=== PATIENT | male | born 1940 | race Caucasian/White ===

== ENCOUNTER 2021-11-01 15:31 | Emergency (ER) | payer MEDICARE, SELFPAY ==
--- NOTE | ~2021-11-01 | XR_ITS ---
EXAM: XR finger 5th LT min 2V HISTORY: fall COMPARISON: None available FINDINGS: Normal mineralization. No fracture or dislocation. No lytic or blastic lesion. Joint space s maintained. No erosion or periosteal change. Soft tissues within normal limits. IMPRESSION: No acute osseous finding in the left fifth finger. Reviewed, dictated and finalized at location K.
[2021-11-01 15:35] VITALS: BP 136/86; PULSE 50; RESP 17; TEMP 36.2; O2SAT 98
--- NOTE | 2021-11-01 15:40 | PC.NURSE ---
Radiology at bedside for xray of left hand.
--- NOTE | 2021-11-01 15:45 | PC.NURSE ---
Dr. Reeves at bedside to assess pt.
--- NOTE | 2021-11-01 16:03 | ED.FALL ---
HPI - Fall General Chief Complaint: Fall <Eitan Reeves MD - Last Filed: 11/01/21 17:40> Stated Complaint: fall, left pinky injury <Eitan Reeves MD - Last Filed: 11/01/21 17:40> Time Seen by Provider: 11/01/21 15:36 <Eitan Reeves MD - Last Filed: 11/01/21 17:40> Source: patient <Eitan Reeves MD - Last Filed: 11/01/21 17:40> History of Present Illness HPI Narrative: Patient presents with a left pinky injury. Patient ports he was sitting on the porch bench when he stood up and turned and lost his balance he tried to catch himself and injured his left pinky and then struck the back of his right hand on the bench. He noted bleeding from his left pinky and a open wound he was concerned so came to the ER for evaluation. He also reports he felt some pop in his finger and was concerned that maybe there was a fracture. Denies any focal numbness or weakness. Denies any limitations to range of motion. Reports pain primarily on his left pinky that is achy, constant, worse with moving his finger, no radiation. Any prodrome such as chest pain shortness of breath or lightheadedness prior to the fall. Denies striking his head or any loss of consciousness. <Eitan Reeves MD - Last Filed: 11/01/21 17:40> Related Data Home Medications: Home Medications Medication Instructions Recorded Confirmed atorvastatin 10 mg tablet 10 mg PO DAILY 06/18/19 finasteride 5 mg tablet 5 mg PO DAILY 06/18/19 omeprazole 40 mg capsule,delayed 40 mg PO DAILY 06/18/19 release triamterene 37.5 1 cap PO DAILY 06/18/19 mg-hydrochlorothiazide 25 mg capsule <Eitan Reeves MD - Last Filed: 11/01/21 17:40> Allergies/Adverse Reactions: Allergies Allergy/AdvReac Type Severity Reaction Status Date / Time amoxicillin Allergy Unknown Unknown Verified 11/01/21 15:39 lansoprazole Allergy Unknown Rash Verified 11/01/21 15:39 Penicillins Allergy Unknown unknown Verified 11/01/21 15:39 <Eitan Reeves MD - Last Filed: 11/01/21 17:40> Review of Systems Review of Systems: CONSTITUTIONAL: Denies fever, chills, or sweats. EYES: Denies visual changes, redness, or discharge. ENT: Denies rhinorrhea, congestion, sore throat, or otalgia. CARDIOVASCULAR: Denies chest pain, palpitations, or edema. RESPIRATORY: Denies cough or dyspnea. GASTROINTESTINAL: Denies abdominal pain, nausea, vomiting, or diarrhea. GENITOURINARY: Denies dysuria or hematuria. SKIN: Denies rash or itching. MUSCULOSKELETAL: Denies back pain, joint pain, or myalgia. NEUROLOGIC: Denies headache, numbness, dizziness, or weakness. PSYCHIATRIC: Denies anxiety or depression. <Eitan Reeves MD - Last Filed: 11/01/21 17:40> All systems reviewed & are unremarkable except as noted in HPI and below <Eitan Reeves MD - Last Filed: 11/01/21 17:40> PMFSH Past Medical History Medical History: Medical History (Updated 11/01/21 @ 16:12 by Eitan Reeves MD) High blood pressure High cholesterol Skin cancer <Eitan Reeves MD - Last Filed: 11/01/21 17:40> Family History Family History: Family History Sibling Cerebrovascular accident Family history of heart disease in male family member before age 55 <Eitan Reeves MD - Last Filed: 11/01/21 17:40> Social History Social History: Social History Smoking status: Never smoker Alcohol intake: never <Eitan Reeves MD - Last Filed: 11/01/21 17:40> Exam Narrative: GENERAL: Well-appearing, well-nourished, and in no acute distress. HEAD: Normocephalic, atraumatic. EYES: PERRLA and EOMI. ENT: Nares clear, no rhinorrhea or epistaxis. Mucous membranes moist. ABDOMEN: Soft, nontender, nondistended, normal active bowel sounds. EXTREMITIES: Normal range of motion. No edema. There are multiple small abrasions noted to the dorsal aspect of th
--- NOTE | 2021-11-01 16:25 | PC.NURSE ---
Addendum entered by Ana Gonzalez RN 11/01/21 16:33: Laceration is to fifth digit not fourth. Original Note: GERALD Remy at bedside to stitch laceration to fourth digit on left hand.
[2021-11-01] MEDS: LIDO 1%/EPINEPHRINE 1:100,000 20 ML VIAL (16:34)
== END 2021-11-01 16:58 | disposition home or self-care (01) ==
PROVIDERS: Emergency Provider Emergency Medicine; PCP Internal Medicine
DX: S61.217A Laceration without foreign body of left little finger without damage to nail, initial encounter (principal); Z85.828 Personal history of other malignant neoplasm of skin; I10 Essential (primary) hypertension; E78.00 Pure hypercholesterolemia, unspecified; S60.511A Abrasion of right hand, initial encounter; W18.39XA Other fall on same level, initial encounter
CPT/HCPCS: 12001; 73140; 99283

== ENCOUNTER 2024-06-22 10:05 | Emergency (ER) | payer MEDICARE, SELFPAY ==
[2024-06-22] VITALS (8 sets, daily range): BP systolic 118–147; BP diastolic 66–90; PULSE 39–42; RESP 13–20; TEMP 36.3–36.6; O2SAT 97–99
--- NOTE | ~2024-06-22 | XR_ITS ---
EXAMINATION: XR chest 2V DATE: 06/22/2024 10:52 INDICATION: Bradycardia. TECHNIQUE: Frontal and lateral views of the chest were obtained. COMPARISON: None. FINDINGS: There is mild atelectasis at the lung bases. No pleural effusion or pneumothorax. The heart size is normal. IMPRESSION: 1. Mild atelectasis at the lung bases. Reviewed, dictated and finalized at location A. R SITE ASSESSMENT SPECIALIST
--- NOTE | 2024-06-22 10:08 | ECG_ITS ---
Test Date: 2024-06-22 10:27:37 Measurements Intervals [place]vere Rate: 41 P: 29 MO: 165 QRS: 28 QRSD: 92 T: 12 QT: 461 QTc: 382 Interpretive Statements SINUS BRADYCARDIA WITH SINUS ARRHYTHMIA No previous ECG available for comparison Electronically Signed On 06-22-2024 12:58:01 TV HOST by Jessica Guthrie M.D.
[2024-06-22 10:47] LABS: Basophils Absolute Auto 0.1 K/mm3 (0.0-0.1); Basophils Percent Auto 0.7 % (0.2-1.2); Eosinophils Absolute Auto 0.2 K/mm3 (0-0.3); Eosinophils Percent Auto 2.1 % (0-4.4); Hematocrit 44.8 % (42.0-52.0); Hemoglobin 14.9 g/dL (14.0-18.0); Immature Granulocyte Absolute 0.01 K/mm3 (0.00-0.031); Immature Granulocyte Percent A 0.1 % (0-0.5); Lymphocytes Absolute Auto 2.51 K/mm3 (0.9-3.2); Lymphocytes Percent Auto 35.9 % (18.3-44.2); Mean Corpuscular HGB Conc 33.3 g/dl (32-36); Mean Corpuscular Hemoglobin 31.5 pg (26-34); Mean Corpuscular Volume 94.7 fl (80-100); Mean Platelet Volume 9.9 fl (7.4-10.4); Monocytes Absolute Auto 0.6 K/mm3 (0.1-0.6); Monocytes Percent Auto 8.2 % (2.6-8.5); Neutrophils Absolute Auto 3.7 K/mm3 (1.3-6.7); Platelet Count Result 202 k/mm3 (150-375); Red Blood Count 4.73 M/mm3 (4.6-6.20); Red Cell Distribution Width 12.2 % (11.5-14.5)
[2024-06-22 10:50] LABS: INR 0.9; Prothrombin Time 12.9 Seconds (11.1-14.7)
[2024-06-22 10:51] LABS: Partial Thromboplastin Time 25.5 Seconds (22.3-36.8)
[2024-06-22 10:57] LABS: Alanine Aminotransferase 22 U/L (6-50); Albumin Level 4.3 g/dL (3.5-5.1); Alkaline Phosphatase 89 U/L (38-126); Anion Gap 3 mmol/L (4-12); Aspartate Amino Transferase 32 U/L (17-59); Bilirubin,Total 0.8 mg/dL (0.2-1.3); Blood Urea Nitrogen 15 mg/dL (9-20); Calcium 9.3 mg/dL (8.4-10.2); Carbon Dioxide 31 mmol/L (22-30); Chloride 105 mmol/L (98-107); Estimated CRCL calculation 56 ml/min; Estimated Glomerular Filt Rate > 60; Glucose 106 mg/dL (65-110); Lipase 72 U/L (23-300); Potassium 4.1 mmol/L (3.4-5.0); Sodium 139 mmol/L (137-145)
[2024-06-22 11:03] LABS: Troponin I < 0.012 ng/mL (0.000-0.034)
--- NOTE | 2024-06-22 12:28 | ED_ITS ---
HPI - General Adult General Chief complaint: Chest Pain Stated complaint: low heart rate 30-40's Time Seen by Provider: 06/22/24 11:02 Source: patient Mode of arrival: ambulatory Limitations: no limitations History of Present Illness HPI narrative: Patient presents with report of a low heart rate. He states his heart rate is often low, usually in the 50s, but while in pre-op for cataract surgery, his heart rate was in the 30s-40s. He reports otherwise being asymptomatic, without chest pain or shortness of breath or change in urine output. Patient notes he takes metoprolol as well as triamterene hydrochlorothiazide. He was not told to hold these medications before his surgery today so he believes that he took them. He has an appointment with Dr Raya, a global coordinator through [facility], on 07/06 at 8:30. This will be his first appointment with a global coordinator. This is because blockages were seen based on an outside test. No prior stents. He is on a statin for hyperlipidemia and also on finasteride and a multivitamin. Related Data Home Medications ?Medication ?Instructions ?Recorded ?Confirmed ?Last Taken ?Type atorvastatin 10 mg tablet 10 mg PO DAILY 06/18/19 Unknown History finasteride 5 mg tablet 5 mg PO DAILY 06/18/19 Unknown History omeprazole 40 mg capsule,delayed 40 mg PO DAILY 06/18/19 Unknown History release triamterene 37.5 1 cap PO DAILY 06/18/19 Unknown History mg-hydrochlorothiazide 25 mg capsule Allergies Allergy/AdvReac Type Severity Reaction Status Date / Time amoxicillin Allergy Unknown Unknown Verified 06/22/24 10:06 lansoprazole Allergy Unknown Rash Verified 06/22/24 10:06 Penicillins Allergy Unknown unknown Verified 06/22/24 10:06 [facility] Past Medical History Medical History (Updated 06/26/24 @ 11:31 by Akiko Mcbride MD) Cataract Skin cancer High cholesterol High blood pressure Family History Family History Sibling Cerebrovascular accident Family history of heart disease in male family member before age 55 Social History Social History Smoking status: Never smoker Alcohol intake: never Exam 2 Narrative: GENERAL: Well-appearing, well-nourished, and in no acute distress. HEAD: Normocephalic, atraumatic. EYES: Non injected, non icteric ENT: Nares clear, no rhinorrhea or epistaxis. NECK: Supple. CHEST: Speaking in full sentences. No respiratory distress. HEART: Bradycardic rate and rhythm. . ABDOMEN: Soft, nondistended. EXTREMITIES: Normal range of motion. Trace lower extremity pitting edema. SKIN: Warm, dry, no rash. NEURO: No focal deficits. Alert and oriented x3. PSYCH: Normal mood and affect. Exceedingly pleasant Course Vital Signs Vital signs: Vital Signs Temperature 97.4 F L 06/22/24 10:10 Pulse Rate 40 L 06/22/24 10:10 Blood Pressure 118/66 06/22/24 10:10 Pulse Oximetry 97 06/22/24 10:10 Temperature 97.8 F 06/22/24 14:03 Pulse Rate 42 L 06/22/24 14:03 Respiratory Rate 13 06/22/24 14:03 Blood Pressure 142/78 H 06/22/24 14:03 Pulse Oximetry 98 06/22/24 14:03 Medical Decision Making MDM Narrative Medical decision making narrative: Patient presents with report of a low heart rate in the 30s-40s found during pre-op period for cataract surgery this morning. In the emergency department he is afebrile with vital signs notable for bradycardia. Patient is on a beta-susi as well as a combination calcium channel susi diuretic. Electrolytes without marked abnormalities. Normal renal function. He is otherwise asymptomatic and has been hemodynamically stable. advised to keep upcoming appointment to establish with a global coordinator and discuss if need to hold medications prior to surgery in the future and/or other workup. Ed return precautions given. Differential Diagnosis Differential Diagnosis: ACS, medication side effect/overdose, electrolyte abnormalities, asymptomatic bradycardia Vital Signs Vital Signs: Vital Signs Temperature 97.4 F L 06/22/24 10:10 Pulse Rate 40 L 06/22/24 10:10 Blood Pressure 118/66 06/22/24 10:10 Pulse Oximetry 97 06/22/24 10:10 Temperature 97.8 F 06/22/24 14:03 Pulse Rate 42 L 06/22/24 14:03 Respiratory Rate 13 06/22/24 14:03 Blood Pressure 142/78 H 06/22/24 14:03 Pulse Oximetry 98 12/06/24 14:03 Lab Data Lab results reviewed: Yes I reviewed the patient's lab results. 06/22/24 10:32 06/22/24 10:32 Labs: Lab Results 06/22/24 06/22/24 06/22/24 Range/Units 10:32 13:16 13:16 WBC 7.0 (4.5-10.0) K/mm3 RBC 4.73 (4.6-6.20) M/mm3 Hgb 14.9 (14.0-18.0) g/dL Hct 44.8 (42.0-52.0) % MCV 94.7 (80-100) fl MCH 31.5 (26-34) pg MCHC 33.3 (32-36) g/dl RDW 12.2 (11.5-14.5) % Plt Count 202 (150-375) k/mm3 MPV 9.9 (7.4-10.4) fl Immature Gran % (Auto) 0.1 (0-0.5) % Neut % (Auto) 53.0 (45.5-73.1) % Lymph % (Auto) 35.9 (18.3-44.2) % [facility] % (Auto) 8.2 (2.6-8.5) % Eos % (Auto) 2.1 (0-4.4) % Baso % (Auto) 0.7 (0.2-1.2) % Lymph # (Auto) 2.51 (0.9-3.2) K/mm3 [facility] # (Auto) 0.6 (0.1-0.6) K/mm3 Eos # (Auto) 0.2 (0-0.3) K/mm3 Baso # (Auto) 0.1 (0.0-0.1) K/mm3 Abs Immat Gran (auto) 0.01 (0.00-0.031) K/mm3 Absolute Neuts (auto) 3.7 (1.3-6.7) K/mm3 Absolute Nucleated RBC 0.000 (0.0-0.012) K/mm3 Nucleated RBC % 0.0 (0.0-0.2) % PT 12.9 (11.1-14.7) Seconds INR 0.9 APTT 25.5 (22.3-36.8) Seconds Sodium 139 (137-145) mmol/L Potassium 4.1 (3.4-5.0) mmol/L Chloride 105 (98-107) mmol/L Carbon Dioxide 31 H (22-30) mmol/L Anion Gap 3 L (4-12) mmol/L BUN 15 (9-20) mg/dL Creatinine 1.00 (0.7-1.3) mg/dL Estim Creat Clear Calc 56 ml/min Estimated GFR > 60 (59 - ) Glucose 106 (65-110) mg/dL Calcium 9.3 (8.4-10.2) mg/dL Magnesium 2.2 Cancelled (1.6-2.3) mg/dL Total Bilirubin 0.8 (0.2-1.3) mg/dL AST 32 (17-59) U/L ALT 22 (6-50) U/L Alkaline Phosphatase 89 (38-126) U/L Troponin I < 0.012 < 0.012 (0.000-0.034) ng/mL NT-Pro-B Natriuret Pep 49 (19.9-100) pg/mL Total Protein 7.0 (6.3-8.2) g/dL Albumin 4.3 (3.5-5.1) g/dL Lipase 72 (23-300) U/L 06/22/24 Range/Units 13:16 WBC (4.5-10.0) K/mm3 RBC (4.6-6.20) M/mm3 Hgb (14.0-18.0) g/dL Hct (42.0-52.0) % MCV (80-100) fl MCH (26-34) pg MCHC (32-36) g/dl RDW (11.5-14.5) % Plt Count (150-375) k/mm3 MPV (7.4-10.4) fl Immature Gran % (Auto) (0-0.5) % Neut % (Auto) (45.5-73.1) % Lymph % (Auto) (18.3-44.2) % [facility] % (Auto) (2.6-8.5) % Eos % (Auto) (0-4.4) % Baso % (Auto) (0.2-1.2) % Lymph # (Auto) (0.9-3.2) K/mm3 [facility] # (Auto) (0.1-0.6) K/mm3 Eos # (Auto) (0-0.3) K/mm3 Baso # (Auto) (0.0-0.1) K/mm3 Abs Immat Gran (auto) (0.00-0.031) K/mm3 Absolute Neuts (auto) (1.3-6.7) K/mm3 Absolute Nucleated RBC (0.0-0.012) K/mm3 Nucleated RBC % (0.0-0.2) % PT (11.1-14.7) Seconds INR APTT (22.3-36.8) Seconds Sodium (137-145) mmol/L Potassium (3.4-5.0) mmol/L Chloride (98-107) mmol/L Carbon Dioxide (22-30) mmol/L Anion Gap (4-12) mmol/L BUN (9-20) mg/dL Creatinine (0.7-1.3) mg/dL Estim Creat Clear Calc ml/min Estimated GFR (59 - ) Glucose (65-110) mg/dL Calcium (8.4-10.2) mg/dL Magnesium (1.6-2.3) mg/dL Total Bilirubin (0.2-1.3) mg/dL AST (17-59) U/L ALT (6-50) U/L Alkaline Phosphatase (38-126) U/L Troponin I (0.000-0.034) ng/mL NT-Pro-B Natriuret Pep Cancelled (19.9-100) pg/mL Total Protein (6.3-8.2) g/dL Albumin (3.5-5.1) g/dL Lipase (23-300) U/L Imaging Data Radiologist's impression: IMPRESSION: 1. Mild atelectasis at the lung bases. ECG Data EKG #1: Attestation: I personally reviewed and interpreted this ECG as follows: ECG completion date: 06/22/24 ECG completion time: 10:27 Interpretation: Sinus bradycardia at a rate of 41 beats per minute. P-waves proceed QRS complexes so this is a sinus rhythm. There is R to R variation consistent with a sinus arrhythmia likely due to respiratory variation. MA interval 165. QRS 92. QT/QTC 461/396. Discharge Plan Discharge Clinical Impression: Bradycardia, sinus, Medication side effect Patient Disposition: Home, Self-Care Condition: Stable Instructions: Antibiotic Form, Bradycardia (ED) Additional Instructions: Your low heart rate (also known as bradycardia) is likely due to an underlying low heart rate with the addition of a medication side effect as both the triamterene and metoprolol you are on can make your heart rate slower. Your workup did not reveal any other causes and you are otherwise asymptomatic. Keep your upcoming appointment with the global coordinator that you have scheduled in the next few weeks and ask them about this regimen and if this should be switched to or if these medications should be held prior to undergoing surgical intervention when this is rescheduled. Return to the emergency department with any new or worsening symptoms particularly if he becomes symptomatic such as chest pain, fatigue, fainting/passing out, short of breath etc. Patient Language: Chadian Prescriptions: No Action triamterene-hydrochlorothiazid 37.5-25 mg capsule 1 cap PO DAILY atorvastatin 10 mg tablet 10 mg PO DAILY omeprazole 40 mg capsule,delayed release(DR/EC) 40 mg PO DAILY finasteride 5 mg tablet 5 mg PO DAILY Follow-up/Referrals: Doug,Deniz Bacon MD [Primary Care Provider] - Time of Disposition: 14:17
[2024-06-22 13:32] LABS: Magnesium 2.2 mg/dL (1.6-2.3)
[2024-06-22 13:44] LABS: NT Pro B Type Natriuretic Pept 49 pg/mL (19.9-100); Troponin I < 0.012 ng/mL (0.000-0.034)
== END 2024-06-22 14:37 | disposition home or self-care (01) ==
PROVIDERS: Emergency Provider Student in an Organized Health Care Education/Training Program; PCP Internal Medicine
DX: R00.1 Bradycardia, unspecified (principal); T50.905A Adverse effect of unspecified drugs, medicaments and biological substances, initial encounter; E78.5 Hyperlipidemia, unspecified
CPT/HCPCS: 36415; 71046; 80053; 83690; 83735; 83880; 84484; 85025; 85610; 85730; 93005; 99284